=== PATIENT | female | born 1965 | race Caucasian/White ===

== ENCOUNTER 2019-12-16 14:10 | Outpatient (CLI) | payer OTHER, SELFPAY ==
--- NOTE | 2020-01-01 23:50 | SLEEP_ITS ---
HOME SLEEP TEST DATE OF STUDY: 12/16/2019 REASON FOR THIS STUDY: Hypersomnia. HISTORY: This patient is a 54-year-old female, 5 feet 4 inches tall, weighing 230 pounds with a body mass index of 39.4. She wakes up feeling tired every day. She has very restless sleep. She goes to bed at 8:00 p.m. and no matter how much sleep she has, she remained tired in the morning. She could sleep until 10 or 11:00 a.m. left on her own. This has been going on for several years. She frequently snores and it is occasionally loud enough that others complain about it. She does not awaken at night with heartburn, belching, or coughing. She does not awaken at night feeling short of breath. She does not have trouble sleeping with a cold, does not gasp for breath at night, and does not have breathing problems reported to her by others. She rarely sweats excessively at night and does not have irregular heartbeats or pounding heart at night. She does not fall asleep during the day or involuntarily. She does not fall asleep while driving. She does not have loss of muscle tone with strong emotion. She rarely has daytime difficulties due to excessive sleepiness. She does not feel paralyzed on waking or falling asleep. She frequently has vivid dreamlike scenes upon awakening or falling asleep. She does not feel afraid to go to sleep. She occasionally has nightmares, frequently remembers her dreams, occasionally has racing thoughts, feelings of sadness, depression, and frequently has anxiety. She rarely has muscular tension. She occasionally notices parts of her body jerking and she occasionally kicks at night. She rarely has crawly achy feelings in her legs. She denies leg pain at night, denies morning jaw pain and denies grinding her teeth during sleep. She occasionally is bothered by pain during the day. She occasionally is awakened by pain at night. She frequently wakes up, feeling stiff in the morning, occasionally with sore achy muscles, occasionally with pain in the neck and spine. She has fatigue, memory problems. Concentration difficulties at times and takes antacids. Normal bedtime is between 10 and 10:30 p.m., falling asleep within 30 minutes to an hour, typically waking 1 to 2 times at night for 10 minutes. During this time, she uses the bathroom. She wakes in the morning at 7:30 a.m. She does take naps on the weekends. A short nap may be refreshing. She usually drowsy in the morning for 1 hour or longer. She feels better in the evening than in the morning. MEDICAL COMORBIDITIES: Hypothyroidism, fatigue, pituitary adenoma 15 years ago. MEDICATIONS: 1. Aspirin 81 mg a day. 2. Atorvastatin 40 mg a day. 3. Lisinopril 20 mg a day. 4. Nitroglycerin spray as needed for chest pain. 5. Valacyclovir 500 mg a day. 6. Metoprolol tartrate 100 mg a day. 7. Duloxetine 60 mg a day. 8. Levothyroxine 25 mcg daily. 9. Venlafaxine 75 mg daily. HABITS: Never smoked tobacco. Caffeine a 32-ounce DrMonika Hart daily. Alcohol, 6 to 8 beverages on the weekend. Now that marijuana is legal, she has used some to initiate sleep. DESCRIPTION OF THE STUDY: Phyllis Sleepiness Scale, her score is 8. This was conducted as an unattended type 3 portable home sleep test using 4-channel monitoring with respiratory effort channel, snoring channel, oxygen saturation channel, and heart rate channel. This study was scored using [facility] guidelines. The apnea-hypopnea index is 24, moderately elevated. Oxygen desaturation index 17.7. She had 74 apneas, 28 of these apneas or 38% were obstructive, 41% of the apneas, 55% were central and 5 apneas were mixed, 7% of the total. She had 140 hypopneas, 217 snoring events and desaturated 162 times, spending 6 minutes below 88%, 1% of the study. The lowest desaturati
== END 2019-12-16 14:11 | disposition home or self-care (01) ==
LOC: ANHCSM 01-08 14:11
PROVIDERS: Visit Provider Internal Medicine Endocrinology, Diabetes & Metabolism
DX: G47.10 Hypersomnia, unspecified (principal); G47.31 Primary central sleep apnea; Z68.39 Body mass index [BMI] 39.0-39.9, adult; E03.9 Hypothyroidism, unspecified
CPT/HCPCS: 95806

== ENCOUNTER 2021-03-09 09:26 | Emergency (ER) | payer OTHER, SELFPAY ==
[2021-03-09 09:32] VITALS: BP 143/94; PULSE 102; RESP 16; TEMP 36.9; O2SAT 100
--- NOTE | 2021-03-09 09:49 | ED.URI ---
HPI - URI/Sore Throat General Chief Complaint: Upper Respiratory Infection Stated Complaint: Sore Throat Time Seen by Provider: 03/09/21 10:16 Source: patient and RN notes reviewed Mode of arrival: ambulatory Limitations: no limitations History of Present Illness HPI Narrative: 56-year-old female presents concern for sore throat for 3 days. Reports painful swallowing, postnasal drainage. Reports body aches that started today. She reports occasional cough with drainage, otherwise denies cough or shortness of breath she denies fever, chills, sweats. She reports she is takes Claritin. She has been vaccinated for Covid. MD elicited complaint: cough and sore throat Related Data Home Medications Medication Instructions Recorded Confirmed aspirin [Aspirin Low Dose] 81 mg PO DAILY 03/24/19 03/09/21 atorvastatin 40 mg PO DAILY 03/24/19 03/09/21 lisinopril 20 mg PO DAILY 03/24/19 03/09/21 nitroglycerin 1 spray SUBLINGUAL Q3-5M PRN 03/24/19 03/09/21 valacyclovir 500 mg PO DAILY 03/24/19 03/09/21 metoprolol tartrate 100 mg tablet 100 mg PO DAILY 04/08/19 03/09/21 duloxetine 60 mg capsule,delayed 90 mg PO DAILY cap 09/30/19 03/09/21 release cholecalciferol (vitamin D3) 10 10 mcg PO DAILY 11/17/20 03/09/21 mcg (400 unit) capsule Allergies Allergy/AdvReac Type Severity Reaction Status Date / Time Sulfa (Sulfonamide Allergy Unknown RASH Verified 03/09/21 10:09 Antibiotics) Review of Systems Review of Systems: CONSTITUTIONAL: Denies malaise, chills, sweats, or fever. EYES: Denies visual changes, redness, or discharge. ENT: Denies rhinorrhea, congestion, sinus pain, otalgia. Reports postnasal drainage and sore throat. CARDIOVASCULAR: Denies chest pain, palpitations, or edema. RESPIRATORY: Reports occasional cough. Denies dyspnea. GASTROINTESTINAL: Denies abdominal pain, nausea, vomiting, diarrhea SKIN: Denies rash or itching. MUSCULOSKELETAL: Report myalgia. NEUROLOGIC: Denies headache. All systems reviewed & are unremarkable except as noted in HPI and below PMFSH Family History Family History Mother Family history of mental disorder Family history of malignant neoplasm Grandparent Hypertension Family history of coronary artery disease Family history of heart disease in male family member before age 55 Diabetes mellitus Sibling Family history of lymphoma Social History Social History Smoking status: Never smoker Second hand tobacco smoke exposure: No Alcohol intake: current Comments At time of signature, agree with nursing past medical, surgical, social and family history. There is no relevant family history pertinent to the presenting complaint Exam Narrative: GENERAL: Well-appearing, well-nourished, and in no acute distress. HEAD: Normocephalic EYES: PERRLA, conjunctivae clear ENT: Nares clear. Mucous membranes moist. TM pearly ahumada with dull light reflex bilaterally; no tragal tenderness. Oropharynx erythematous without lesions. Tonsils not enlarged and without exudate, no drooling, no hoarseness, no trismus, uvula midline. NECK: Supple. No lymphadenopathy CHEST: Clear to auscultation, breath sounds equal. No wheezing, rhonchi, rales, or stridor. No respiratory distress, speaks in full sentences. HEART: Regular rate and rhythm. No murmur heard. SKIN: Warm, dry, no rash. NEURO: Alert and oriented x3. PSYCH: Normal mood and affect Course Course Emergency Course: Patient is aware of diagnosis, understands and agrees to treatment plan. Anticipatory guidance given. Patient agrees to follow-up as directed and is aware of reasons to seek care at the emergency department. Portions of this record may have been created with voice recognition software Vital Signs Vital signs: Vital Signs Temperature 98.4 F 03/09/21 09:32 Pulse Rate 102 H 03/09/21 09:32 Respiratory Rate 16 03/09/21
== END 2021-03-09 10:26 | disposition home or self-care (01) ==
PROVIDERS: Emergency Provider Nurse Practitioner; PCP Nurse Practitioner Family
DX: J06.9 Acute upper respiratory infection, unspecified (principal); Z79.82 Long term (current) use of aspirin; Z20.822 Contact with and (suspected) exposure to COVID-19
CPT/HCPCS: 87081; 87426; 87880; 99213; C9803; G0463